=== PATIENT | female | born 1980 | race African-American/Black ===

== ENCOUNTER 2018-04-27 10:07 | Emergency (ER) | payer SELFPAY ==
[~2018-04-27] VITALS: Ht 162.6 cm; Wt 57.0 kg
[2018-04-27] MEDS ORDERED: KEPP250 PO (10:12)
[2018-04-27] MEDS ORDERED: SODIUM CHLORIDE 0.9% 1,000 ML IV ONE (10:18)
[2018-04-27] MEDS ORDERED: LEVETIRACETAM 500MG TABLET PO ONE ×2 (10:30→10:45)
[2018-04-27] MEDS ORDERED: LEVETIRACETAM 500MG PREMIX 100 ML IV ONE (10:45)
[2018-04-27] MEDS: LEVETIRACETAM 500MG PREMIX 100 ML IV SCH ×2 (11:13→12:07)
[2018-04-27 11:18] LABS: BASOPHILS % 0.6 % (0.0-2.0); EOSINOPHILS % 2.6 % (0.0-5.0); HEMATOCRIT. 41.8 % (36.0-48.0); HEMOGLOBIN. 14.6 g/dL (12.0-16.0); LYMPHOCYTES % 20.9 % (20.0-50.0); MEAN CORPUSCULAR HEMOGLOBIN 30.7 pg (28.0-32.0); MEAN CORPUSCULAR VOLUME 87.8 fL (81.0-99.0); MEAN PLATELET VOLUME 8.4 fl (7.4-10.4); MONOCYTES % 4.3 % (2.0-8.0); NEUTROPHILS % 71.6 % (40.0-76.0); PLATELET 223 x1000/uL (130-400); RED BLOOD CELL COUNT 4.75 mill/uL (4.2-5.4); RED CELL DISTRIBUTION WIDTH 14.3 % (11.6-14.6)
[2018-04-27 11:25] LABS: CHLORIDE 106 mEq/L (98-107)
[2018-04-27 11:31] LABS: HCG SCREEN NEGATIVE
[2018-04-27 11:33] LABS: ETHANOL BLOOD < 10 mg/dL
[2018-04-27 15:32] VITALS: BP 98/68
== END 2018-04-27 15:40 | disposition home or self-care (01) ==
LOC: ER 10:18
DX: G40.909 Epilepsy, unspecified, not intractable, without status epilepticus (principal); S00.512A Abrasion of oral cavity, initial encounter; Z76.0 Encounter for issue of repeat prescription; X58.XXXA Exposure to other specified factors, initial encounter; Y93.89 Activity, other specified; Y92.018 Other place in single-family (private) house as the place of occurrence of the external cause
CPT/HCPCS: 36415; 80048; 80320; 81025; 84703; 85025; 96365; 96376; 99283; J1953; J7030; G0480

== ENCOUNTER 2018-12-01 16:57 | Emergency (ER) | payer OTHER ==
[~2018-12-01] VITALS: Ht 162.6 cm; Wt 53.0 kg
[~2018-12-01 16:57] MED LIST: KEPP250 PO
[2018-12-01 19:25] LABS: EOSINOPHILS % 3.5 % (0.0-5.0); HEMATOCRIT. 37.6 % (36.0-48.0); LYMPHOCYTES % 29.4 % (20.0-50.0); MEAN CORPUSCULAR HEMOGLOBIN 30.6 pg (28.0-32.0); MEAN CORPUSCULAR VOLUME 88.5 fL (81.0-99.0); MEAN PLATELET VOLUME 8.4 fl (7.4-10.4); NEUTROPHILS % 60.1 % (40.0-76.0); PLATELET 236 x1000/uL (130-400); RED BLOOD CELL COUNT 4.24 mill/uL (4.2-5.4)
[2018-12-01 19:30] LABS: CHLORIDE 109 mEq/L (98-107)
[2018-12-01 19:35] LABS: ETHANOL BLOOD < 10 mg/dL
[2018-12-01 19:36] LABS: CLARITY URINE CLEAR (CLEAR); COLOR URINE YELLOW (YELLOW); KETONES URINE NEGATIVE (NEGATIVE); LEUKOCYTE ESTERASE URINE NEGATIVE (NEGATIVE); NITRITE URINE NEGATIVE (NEGATIVE); OCCULT BLOOD URINE NEGATIVE (NEGATIVE); PH URINE 6.5 (4.5-8.0); PROTEIN URINE NEGATIVE (NEGATIVE); SPECIFIC GRAVITY URINE 1.031 (1.005-1.030)
[2018-12-01 19:44] LABS: *AMPHETAMINES SCREEN URINE NEGATIVE (NEGATIVE)
[2018-12-01 19:45] LABS: *BENZODIAZEPINES SCREEN URINE NEGATIVE (NEGATIVE); *COCAINE SCREEN URINE NEGATIVE (NEGATIVE); METHADONE URINE SCREEN NEGATIVE (NEGATIVE); OPIATES URINE SCREEN NEGATIVE (NEGATIVE); PHENCYCLIDINE URINE SCREEN NEGATIVE (NEGATIVE)
[2018-12-01] MEDS ORDERED: LEVETIRACETAM 500MG PREMIX 100 ML IV ONE (19:45)
[2018-12-01] MEDS ORDERED: SODIUM CHLORIDE 0.9% 500 ML IV ONE (19:45)
[2018-12-01 19:48] LABS: *BARBITURATES SCREEN URINE NEGATIVE (NEGATIVE)
[2018-12-01 19:50] LABS: CANNABINOID URINE SCREEN PRESUMTIVE POSITIVE (NEGATIVE)
[2018-12-01 19:54] VITALS: BP 116/77
== END 2018-12-01 21:18 | disposition home or self-care (01) ==
LOC: ER 16:57
DX: G40.909 Epilepsy, unspecified, not intractable, without status epilepticus (principal); G43.909 Migraine, unspecified, not intractable, without status migrainosus; F17.210 Nicotine dependence, cigarettes, uncomplicated
CPT/HCPCS: 36415; 80053; 80305; 80320; 81003; 81025; 85025; 96365; 99283; 99406; J1953; J7040; G0480

== ENCOUNTER 2019-02-04 01:04 | Inpatient (IN) | payer OTHER ==
[~2019-02-04] VITALS: Ht 162.6 cm; Wt 54.4 kg
[2019-02-04] MEDS ORDERED: MORPHINE SULFATE 4 MG/ML CPJ (NOT FOR IM USE) IV STA (01:40)
[2019-02-04] MEDS ORDERED: SODIUM CHLORIDE 0.9% 1,000 ML IV ONE (01:40)
[2019-02-04] MEDS ORDERED: ONDANSETRON HCL 4MG/2ML INJ IV STA (01:40)
[2019-02-04] MEDS ORDERED: LORAZEPAM 2MG/ML CPJ IV ONE ×2 (01:45→08:30)
[2019-02-04] MEDS ORDERED: LEVETIRACETAM 500MG PREMIX 100 ML IV ONE (01:45)
[2019-02-04 07:50] LABS: BASOPHILS % 1.3 % (0.0-2.0); CHLORIDE 112 mEq/L (98-107); EOSINOPHILS % 6.8 % (0.0-5.0); ETHANOL BLOOD < 10 mg/dL; HEMATOCRIT. 38.1 % (36.0-48.0); HEMOGLOBIN. 13.2 g/dL (12.0-16.0); LYMPHOCYTES % 36.5 % (20.0-50.0); MEAN CORPUSCULAR HEMOGLOBIN 30.1 pg (28.0-32.0); MEAN CORPUSCULAR VOLUME 86.6 fL (81.0-99.0); MEAN PLATELET VOLUME 9.3 fl (7.4-10.4); MONOCYTES % 5.9 % (2.0-8.0); NEUTROPHILS % 49.5 % (40.0-76.0); PLATELET 168 x1000/uL (130-400); RED BLOOD CELL COUNT 4.39 mill/uL (4.2-5.4); RED CELL DISTRIBUTION WIDTH 13.9 % (11.6-14.6)
[2019-02-04 09:56] LABS: HCG SCREEN NEGATIVE
[2019-02-04] MEDS ORDERED: KETOROLAC 15MG/ML VIAL IV ONE (11:30)
[2019-02-04] MEDS ORDERED: DEXT 5%/0.45% NACL KCL 10MEQ/L 1,000 ML IV SCH (12:16)
[2019-02-04] MEDS ORDERED: LORAZEPAM 2MG/ML CPJ IV PRN (12:30)
[2019-02-04] MEDS ORDERED: ACETAMINOPHEN 325MG TABLET PO PRN (12:30)
[2019-02-04] MEDS ORDERED: CLONIDINE 0.1MG TABLET PO PRN (12:30)
[2019-02-04] MEDS ORDERED: DOCUSATE SODIUM 100MG CAPSULE PO PRN (12:30)
[2019-02-04] MEDS ORDERED: ONDANSETRON HCL 4MG/2ML INJ IV PRN (12:30)
[2019-02-04 15:30] VITALS: BP 103/70
[2019-02-04] MEDS ORDERED: ALBU18HF2 IH (16:09)
[2019-02-04] MEDS ORDERED: [UNRECOGNIZED DRUG - CODE] PO (16:09)
[2019-02-04] MEDS: ENOXAPARIN 40MG/0.4ML SYR SUBCUT SCH (16:28)
[2019-02-04 16:30] VITALS: BP 113/78
[2019-02-04] MEDS: HYDROCODONE/ACETAMINOPHEN 5/325MG TABLET PO PRN (17:05)
[2019-02-04] MEDS ORDERED: INFLUENZA VIRUS VACCINE(AFLURIA) 0.5ML SYR IM ONE (17:30)
[2019-02-04 20:00] VITALS: BP 95/58
[2019-02-04] MEDS: LEVETIRACETAM 500MG TABLET PO SCH (20:14)
[2019-02-04 20:41] LABS: CLARITY URINE CLEAR (CLEAR); COLOR URINE YELLOW (YELLOW); KETONES URINE TRACE (NEGATIVE); LEUKOCYTE ESTERASE URINE NEGATIVE (NEGATIVE); NITRITE URINE NEGATIVE (NEGATIVE); OCCULT BLOOD URINE NEGATIVE (NEGATIVE); PROTEIN URINE TRACE (NEGATIVE); SPECIFIC GRAVITY URINE 1.025 (1.005-1.030)
[2019-02-04 20:52] LABS: *BARBITURATES SCREEN URINE NEGATIVE (NEGATIVE)
[2019-02-04 20:53] LABS: *AMPHETAMINES SCREEN URINE NEGATIVE (NEGATIVE); *BENZODIAZEPINES SCREEN URINE NEGATIVE (NEGATIVE); *COCAINE SCREEN URINE NEGATIVE (NEGATIVE); METHADONE URINE SCREEN NEGATIVE (NEGATIVE); PHENCYCLIDINE URINE SCREEN NEGATIVE (NEGATIVE)
[2019-02-04 21:01] LABS: CANNABINOID URINE SCREEN PRESUMTIVE POSITIVE (NEGATIVE); OPIATES URINE SCREEN PRESUMTIVE POSITIVE (NEGATIVE)
[2019-02-05] VITALS: BP 93/67
[2019-02-05 04:00] VITALS: BP 98/68
[2019-02-05] MEDS: HYDROCODONE/ACETAMINOPHEN 5/325MG TABLET PO PRN ×2 (04:34→09:38)
[2019-02-05 07:13] LABS: BASOPHILS % 0.9 % (0.0-2.0); EOSINOPHILS % 5.8 % (0.0-5.0); HEMATOCRIT. 35.4 % (36.0-48.0); HEMOGLOBIN. 12.4 g/dL (12.0-16.0); LYMPHOCYTES % 15.8 % (20.0-50.0); MEAN CORPUSCULAR HEMOGLOBIN 30.1 pg (28.0-32.0); MEAN CORPUSCULAR VOLUME 85.7 fL (81.0-99.0); MEAN PLATELET VOLUME 9.1 fl (7.4-10.4); NEUTROPHILS % 72.5 % (40.0-76.0); PLATELET 180 x1000/uL (130-400); RED BLOOD CELL COUNT 4.14 mill/uL (4.2-5.4)
[2019-02-05 07:20] LABS: CHLORIDE 113 mEq/L (98-107)
[2019-02-05 08:00] VITALS: BP 106/66
[2019-02-05] MEDS: LEVETIRACETAM 500MG TABLET PO SCH ×2 (08:21→21:07)
[2019-02-05] MEDS ORDERED: KETOROLAC 15MG/ML VIAL IV PRN (10:45)
[2019-02-05 12:00] VITALS: BP 117/75
[2019-02-05] MEDS: ENOXAPARIN 40MG/0.4ML SYR SUBCUT SCH (13:09)
[2019-02-05] MEDS ORDERED: DIATR MEGLU/DIATRIZOATE SOLN 30ML PO SCH (13:15)
[2019-02-05 16:00] VITALS: BP 114/74
[2019-02-05 16:41] LABS: CREATINE KINASE 58 IU/L (26-192)
[2019-02-05] MEDS ORDERED: DEXT 5%/0.45% NACL KCL 10MEQ/L 1,000 ML IV SCH (17:00)
[2019-02-05 20:00] VITALS: BP 101/64
[2019-02-06] VITALS: BP 94/54
[2019-02-06 04:00] VITALS: BP 98/65
[2019-02-06 08:00] VITALS: BP 107/80
[2019-02-06 09:39] VITALS: BP 107/80
[2019-02-06] MEDS: LEVETIRACETAM 500MG TABLET PO SCH (10:32)
== END 2019-02-06 12:53 | disposition home or self-care (01) | DRG 101 ==
LOC: ER 01:04 → 6EST 10:29 → CANRESERV 12:22 → ENRESERV 12:22
PROVIDERS: ADMIT Hospitalist; ATTEND Hospitalist
DX: G40.909 Epilepsy, unspecified, not intractable, without status epilepticus (principal); E44.1 Mild protein-calorie malnutrition; E73.9 Lactose intolerance, unspecified; J45.909 Unspecified asthma, uncomplicated; G43.909 Migraine, unspecified, not intractable, without status migrainosus; K58.0 Irritable bowel syndrome with diarrhea; F32.9 Major depressive disorder, single episode, unspecified; Z79.899 Other long term (current) drug therapy
CPT/HCPCS: 36415; 71045; 74177; 80053; 80305; 80320; 81003; 82270; 82550; 82705; 83605; 84703; 85025; 85651; 86140; 87015; 87045; 87427; 87449; 87493; 89055; 93005; 93970; 96361; 96374; 99285; C1893; J1650; J1885; J1953; J2060; J2270; J2405; J7030; Q9963; G0480